=== PATIENT | female | born 1995 | race American Indian/Alaskan Native ===

== ENCOUNTER 2017-12-21 12:09 | Emergency (ER) | payer SELFPAY ==
[2017-12-21] MEDS ORDERED: Sodium Chloride 0.9% 1,000 ML IV STA (12:32)
[2017-12-21] MEDS ORDERED: Famotidine 20mg/50ml 20 MG/50 ML BAG IVPB STA (12:33)
--- NOTE | 2017-12-21 12:45 | ED PDOC ---
Arrival/HPI - General Chief Complaint: GI Problem Time Seen by Provider: 12/21/17 12:31 Historian: Patient - History of Present Illness Narrative History of Present Illness (Text): 12/21/17 12:30p pt p/w + mid abd cramps, mild-moderate pain with persistent nausea and + loose watery bowel movement/diarrhea since 2am today; pt states she had a total of 3 episodes of watery BM; pt states no appetite, + feeling weak and easily fatigued ; + dry mouth; pt states she had some dinner at a restaurant last night, she left the place around 11pm, pt had chicken pao and some salads; no one in her group ate the same foods and no one expressed similar symptoms; pt states no fever/chills/sweats, no cp/sob/palpitations, no numbness/tingling, no urinary changes, no dysuria, no gross bleeding, no fall/trauma/sick contact, no travel; pt denied LOC; pt states no dizziness/lightheadedness. pt is here for further eval pt's without other complaints PCP: LMP: pmhx: unremarkable pt works at [employer] Time/Duration: 24 hours Symptom Onset: Sudden Symptom Course: Unchanged Quality: Cramping Severity Level: Moderate Activities at Onset: Rest Context: Home Past Medical History - Provider Review Nursing Documentation Reviewed: Yes - Travel History Have you recently traveled outside [place] w/in the past 3 mons?: No - Past History Past History: No Previous - Infectious Disease Hx of Infectious Diseases: None - Reproductive Currently : Unknown - Psychiatric Hx Substance Use: Yes (marijuana) - Surgical History Hx Appendectomy: Yes Family/Social History - Physician Review Nursing Documentation Reviewed: Yes Family/Social History: No Known Family HX Smoking Status: Light Smoker < 10 Cigarettes Daily Hx Alcohol Use: No Hx Substance Use: Yes (marijuana) Hx Substance Use Treatment: No Allergies/Home Meds Allergies/Adverse Reactions: Allergies No Known Allergies Allergy (Verified 12/21/17 12:18) Review of Systems - Review of Systems Constitutional: Fatigue. absent: Weight Change, Fevers Eyes: Normal ENT: Normal Respiratory: Normal Cardiovascular: Normal Gastrointestinal: Abdominal Pain, Diarrhea, Nausea Genitourinary Female: Normal Musculoskeletal: Normal Skin: Normal Neurological: Normal Endocrine: Normal Hemo/Lymphatic: Normal Psychiatric: Normal Physical Exam - Physical Exam Narrative Physical Exam (Text): 12/21/17 12:30pm General: alert/awake, GCS = 15, oriented x 3, resting in bed, mildly uncomfortable, cooperative, interactive; NAD Head: NC/AT EYE: PERRLA, EOMI, sclera anicteric, no nystagmus, no photophobia; visual field intact b/l Facial: WNL Oral: uvula/tongue are midline, no exudate/lesions, no drooling/stridor, no dysphonia; intact dentitions; mild dry oral mucosa NECK: intact ROM, no midline tenderness, no nuchal rigidity, no meningeal signs ; no step off Chest: CTA b/l, no w/r/r; no tachypenia, no accessory muscle use noted Cardiac: +S1, +S2, no m/r/r, no tachycardia Abdominal: +BS, soft/nd, + mid abd tenderness, well nourished/obese female patient; no masses/rebound/guarding/rigidity; no graham's sign, no mcburney's point tenderness Extremities: intact ROM, strength 5/5 grossly intact in all limbs, neurovasc intact b/l; + ambulatory; reflex +2/2; no pitting edema/swelling noted, no freddie 's sign b/l BACK: no step off, no midline tenderness, NO crepitus, no gross deformities noted; Intact ROM; no cvat b/l SKIN: cap refill ~ 1 sec, no ulcerations, no petechiae, no rashes; no gross pallor noted NEURO: CNII-XII WNL, no facial asymmetries, no slurr speech, oriented x 3 NIH stroke scale ~ 0 Psych: normal insight, normal affect; follows command with ease Vital Signs Reviewed: Yes Vital Signs Temp Pulse Resp BP Pulse Ox 12/21/17 12:09 98.2 F 68 18 124/76 100 Temperature: Afebrile Blood Pressure: Normal Pulse: Regular Respiratory Rate: Normal Appearance: Positive for: Well-Appearing, Uncomfortable. No: Non-Toxic, Comfortable, Ill-Appearing Pain Distress: None Mental Status: Positive for: Alert and Oriented X 3 - Systems Exam Head: Present: Atraumatic, Normocephalic Medical Decision Making ED Course and Treatment: 12/21/17 12:35p Impression: mid abd pain/n/v/d i have consider all the differential diagnosis regarding pt's chief medical complaints/clinical findings, including but are not limited to: abd cramps/n/v/d A/P: abd cramps/n/v/d - labs - iv - ua - supportive care - observe/reevaluation 12/21/17 1400 pt is doing well pt is comfortable 1530 pt remained comfortable pt is not in any distress no nausea/vomiting noted pt felt improved vital signs WNL pt is made aware of her medical results pt is encouraged bland diet and continued hydration pt will f/u as directed pt will be discharged home Re-evaluation Time: 14:00 Reassessment Condition: Improved - Lab Interpretations Lab Results: 12/21/17 13:00 12/21/17 13:00 Lab Results 12/21/17 13:00: Sodium 140, Potassium 4.1, Chloride 106, Carbon Dioxide 24, Anion Gap 15, BUN 11, Creatinine 0.6 L, Est GFR ( Amer) > 60, Est GFR ( Non-Af Amer) > 60, Random Glucose 95, Calcium 9.3, Total Bilirubin 0.8, AST 34, ALT 22, Alkaline Phosphatase 54, Total Protein 7.5, Albumin 4.4, Globulin 3.0, Albumin/Globulin Ratio 1.5 12/21/17 13:00: WBC 3.8 L, RBC 4.38, Hgb 11.5 L, Hct 35.3 L, MCV 80.6, MCH 26.3 , MCHC 32.6, RDW 16.1 H, Plt Count 251, MPV 9.0, Gran % 42.8 L, Lymph % (Auto) 49.6 H, [place] % (Auto) 4.5, Eos % (Auto) 2.6, Baso % (Auto) 0.5, Gran # 1.63, Lymph # (Auto) 1.9, [place] # (Auto) 0.2, Eos # (Auto) 0.1, Baso # (Auto) 0.02 12/21/17 12:35: Urine Color Yellow, Urine Appearance Clear, Urine pH 6.0, Ur Specific [place] 1.025, Urine Protein Negative, Urine Glucose (UA) Negative, Urine Ketones Negative, Urine Blood Negative, Urine Nitrate Negative, Urine Bilirubin Negative, Urine Urobilinogen 0.2, Ur Leukocyte Esterase Trace H, Urine RBC Negative, Urine WBC 2 - 5, Ur Epithelial Cells 10 - 12, Urine Bacteria Many I have reviewed the lab results: Yes Interpretation: All labs normal - Medication Orders Current Medication Orders: Discontinued Medications Sodium Chloride (Sodium Chloride 0.9%) 1,000 mls @ 999 mls/hr IV .Q1H1M STA Stop: 12/21/17 13:32 Last Admin: 12/21/17 12:57 Dose: 999 mls/hr eMAR Start Stop Document 12/21/17 12:57 EQ (Rec: 12/21/17 12:57 EQ [id number]) Intravenous Solution Start Date 12/21/17 Start Time 12:57 Famotidine (Pepcid 20mg/50ml Premix) 20 mg in 50 mls @ 100 mls/hr IVPB STAT STA Stop: 12/21/17 13:02 Last Admin: 12/21/17 12:56 Dose: 100 mls/hr eMAR Start Stop Document 12/21/17 12:56 EQ (Rec: 12/21/17 12:56 EQ [id number]) Intravenous Solution Start Date 12/21/17 Start Time 12:56 Ondansetron HCl (Zofran Inj) 4 mg IVP STAT STA Stop: 12/21/17 12:33 Last Admin: 12/21/17 12:56 Dose: 4 mg IVP Administration Document 12/21/17 12:56 EQ (Rec: 12/21/17 12:56 EQ [id number]) Charges for Administration # of IVP Administrations 1 Disposition/Present on Arrival - Present on Arrival Any Indicators Present on Arrival: No History of DVT/PE: No History of Uncontrolled Diabetes: No Urinary Catheter: No History of Decub. Ulcer: No History Surgical Site Infection Following: None - Disposition Have Diagnosis and Disposition been Completed?: Yes Diagnosis: Nausea and vomiting, Diarrhea, Epigastric pain, Mild dehydration Disposition: HOME/ ROUTINE Disposition Time: 15:44 Patient Plan: Discharge Patient Problems: Current Active Problems Problem Status Onset Diarrhea Acute Epigastric pain Acute Mild dehydration Acute Nausea and vomiting Acute Condition: STABLE Discharge Instructions (ExitCare): Diarrhea in Adolescents and Adults, Dehydration, Adult (DC), Diarrhea and Traveler's Diarrhea, Adult (DC) Print Language: POLISH Additional Instructions: Make sure to see your doctor in 1-2 days DRINK PLENTY OF FLUIDS BLAND DIET IS ENCOURAGED take your medications as prescribed RETURN TO ED IF worse pain, cant breath, persistent vomiting, high fever >101- 102 for hours, altered behavior, slurr speech, facial changes, focal weakness ( arm/leg or both), unable to urinate, heavy/persistent bleeding, passing out, chest pain, or other medical emergencies Prescriptions: Famotidine [Pepcid] 20 mg PO BID #14 tab Ondansetron ODT [Zofran ODT] 4 mg PO TID PRN #10 odt PRN Reason: Nausea/Vomiting Referrals: PCP,NO [Non-Staff] - Follow up with primary [employer] [Outside] - [facility] with [facility] [Outside] - Follow up with primary [facility] [place] - Follow up with primary Forms: [employer] [facility] ([place]), WORK NOTE
[2017-12-21 13:45] VITALS: PULSE 68; RESP 18; TEMP 98.2
[2017-12-21 13:49] LABS: BASO # 0.02 K/mm3 (0.0-2.0); BASO % 0.5 % (0.0-3.0); EOS # 0.1 (0.0-0.7); EOS % 2.6 % (1.5-5.0); GRAN # 1.63 (1.4-6.5); GRAN % 42.8 % (50.0-68.0); HEMOGLOBIN 11.5 g/dL (12.0-16.0); LYMPH # 1.9 (1.2-3.4); LYMPH % 49.6 % (22.0-35.0); MEAN CELL VOLUME 80.6 fl (80.0-105.0); MEAN CORPUSCULAR HEMOGLOBIN 26.3 pg (25.0-35.0); MEAN CORPUSCULAR HGB CONC 32.6 g/dl (31.0-37.0); MONO # 0.2 (0.1-0.6); MONO % 4.5 % (1.0-6.0); RBC 4.38 10^6/uL (3.5-6.1); RED CELL DISTRIBUTION WIDTH 16.1 % (11.5-14.5); WHITE BLOOD COUNT 3.8 10^3/ul (4.5-11.0)
[2017-12-21 14:18] LABS: ALB/GLOB RATIO 1.5 (1.1-1.8); ALBUMIN 4.4 g/dL (3.0-4.8); ALT/SGPT 22 U/L (7-56); AST/SGOT 34 U/L (14-36); BLOOD UREA NITROGEN 11 mg/dL (7-21); CALCIUM 9.3 mg/dL (8.4-10.5); GFR AFRICAN-AMERICAN > 60; GFR NON-AFRICAN AMERICAN > 60
[2017-12-21 15:13] LABS: URINE BILIRUBIN NEGATIVE (NEGATIVE); URINE BLOOD NEGATIVE (NEGATIVE); URINE GLUCOSE (UA) NEGATIVE (NEGATIVE); URINE LEUKOCYTE ESTERASE TRACE Leu/uL (NEGATIVE); URINE PROTEIN NEGATIVE mg/dL (<30 mg/dL); URINE UROBILINOGEN 0.2 E.U./dL (<1 E.U./dL)
[2017-12-21 15:18] LABS: URINE APPEARANCE CLEAR (CLEAR); URINE COLOR YELLOW (YELLOW)
[2017-12-21 15:34] LABS: URINE BACTERIA MANY (NEG); URINE RBC NEGATIVE /hpf (0-2)
[2017-12-21 17:52] VITALS: BP 117/68; O2SAT 99
== END 2017-12-21 15:40 | disposition home or self-care (01) ==
LOC: MERGE 12:09 → ED 12:09
DX: R11.2 Nausea with vomiting, unspecified (principal); R19.7 Diarrhea, unspecified; R10.13 Epigastric pain; E86.0 Dehydration; F17.210 Nicotine dependence, cigarettes, uncomplicated
CPT/HCPCS: 80053; 81001; 85025; 87086; 96374; 99284; J2405; J7030